=== PATIENT | female | born 1975 | race American Indian/Alaskan Native ===

== ENCOUNTER 2016-07-13 21:27 | Emergency (ER) | payer MEDICAID ==
[2016-07-13 21:27] VITALS: BMI 41.1
[2016-07-13 21:40] VITALS: RESP 18; TEMP 98.7
[2016-07-13] MEDS ORDERED: Vancomycin 1gm in NS 250ml 1 GM/250 ML BAG IVPB STA (22:25)
[2016-07-13 22:44] LABS: ADD MANUAL DIFF? NO
[2016-07-13 22:47] LABS: BASO # 0.04 K/mm3 (0.0-2.0); BASO % 0.5 % (0.0-3.0); EOS # 0.2 (0.0-0.7); EOS % 2.5 % (1.5-5.0); GRAN # 3.55 (1.4-6.5); GRAN % 47.6 % (50.0-68.0); HEMATOCRIT 32.2 % (36.0-48.0); LYMPH # 3.4 (1.2-3.4); LYMPH % 45.4 % (22.0-35.0); MEAN CELL VOLUME 84.5 fL (80.0-105.0); MEAN CORPUSCULAR HEMOGLOBIN 28.1 pg (25.0-35.0); MEAN CORPUSCULAR HGB CONC 33.2 g/dl (31.0-37.0); MEAN PLATELET VOLUME 9.9 fl (7.0-11.0); MONO # 0.3 (0.1-0.6); PLATELET COUNT 349 10^3/uL (120.0-450.0); RED CELL DISTRIBUTION WIDTH 13.1 % (11.5-14.5); WHITE BLOOD COUNT 7.5 10^3/ul (4.5-11.0)
[2016-07-13 22:57] LABS: ALB/GLOB RATIO 1.1 (1.1-1.8); ALKALINE PHOSPHATASE 65 U/L (38-133); ALT/SGPT 29 U/L (7-56); AST/SGOT 16 U/L (15-39); BILIRUBIN,TOTAL 0.4 mg/dL (0.2-1.3); BLOOD UREA NITROGEN 15 mg/dL (7-21); CARBON DIOXIDE 26 mmol/L (21-33); CHLORIDE 106 mmol/L (98-107); GFR AFRICAN-AMERICAN > 60; GLUCOSE,RANDOM 107 mg/dL (70-110); SODIUM 138 mmol/L (132-148); TOTAL PROTEIN 7.4 g/dL (5.8-8.3)
--- NOTE | 2016-07-13 23:57 | ED PDOC ---
Arrival/HPI - General Chief Complaint: Breast Problem Time Seen by Provider: 07/13/16 22:10 Historian: Patient - History of Present Illness Narrative History of Present Illness (Text): 07/12/16 22:25 40 year old female who presents to the Emergency department complaining of an abscess to the left breast for the past few days. Patient reports associated pain to the left breast and states today she noticed yellow discharge coming from the abscess. Patient denies any fever, chills, chest pain, shortness of breath, headache, dizziness, or any other complaints. Time/Duration: Other (few days) Symptom Onset: Gradual Symptom Course: Unchanged Activities at Onset: Rest Context: Home Past Medical History - Provider Review Nursing Documentation Reviewed: Yes - Tetanus Immunization Tetanus Immunization: Unknown - Psychiatric Hx Substance Use: No - Surgical History Hx Section: Yes - Suicidal Assessment Feels Threatened In Home Enviroment: No Family/Social History - Physician Review Nursing Documentation Reviewed: Yes Family/Social History: No Known Family HX Smoking Status: Light Smoker < 10 Cigarettes Daily Hx Alcohol Use: Yes Frequency of alcohol use: Socially Hx Substance Use: No Hx Substance Use Treatment: No Allergies/Home Meds Allergies/Adverse Reactions: Allergies No Known Allergies Allergy (Verified 10/26/13 14:05) Review of Systems - Physician Review All systems were reviewed & negative as marked: Yes - Review of Systems Constitutional: Normal. absent: Fevers Eyes: Normal ENT: Normal Respiratory: Normal. absent: SOB, Cough Cardiovascular: Normal. absent: Chest Pain Gastrointestinal: Normal. absent: Abdominal Pain, Diarrhea, Nausea, Vomiting Genitourinary Female: Normal. absent: Dysuria, Frequency, Hematuria, Urine Output Changes Musculoskeletal: Normal. absent: Back Pain, Neck Pain Skin: Abscess (+left breast abscess). absent: Rash Neurological: Normal. absent: Headache, Dizziness Endocrine: Normal Hemo/Lymphatic: Normal Psychiatric: Normal Physical Exam Vital Signs Reviewed: Yes Vital Signs Temp Pulse Resp BP Pulse Ox 07/14/16 01:07 61 18 139/79 100 07/13/16 21:39 98.7 F 69 18 156/82 H 99 Temperature: Afebrile Blood Pressure: Normal Pulse: Regular Respiratory Rate: Normal Appearance: Positive for: Well-Appearing, Non-Toxic, Comfortable Pain Distress: None Mental Status: Positive for: Alert and Oriented X 3 - Systems Exam Head: Present: Atraumatic, Normocephalic Pupils: Present: PERRL Extroacular Muscles: Present: EOMI Conjunctiva: Present: Normal Mouth: Present: Moist Mucous Membranes Neck: Present: Normal Range of Motion Respiratory/Chest: Present: Clear to Auscultation, Good Air Exchange. No: Respiratory Distress, Accessory Muscle Use Cardiovascular: Present: Regular Rate and Rhythm, Normal S1, S2. No: Murmurs Abdomen: Present: Normal Bowel Sounds. No: Tenderness, Distention, Peritoneal Signs Breast/Axillary: Present: Erythema (3x3cm tender, indurated, non-fluctuant, open draining abscess with surrounding cellulitis proximal to left nipple), Other (FIDELIA Montoya present as supervisor [employer]). No: Fluctuance, Nipple Discharge Back: Present: Normal Inspection Upper Extremity: Present: Normal Inspection. No: Cyanosis, Edema Lower Extremity: Present: Normal Inspection. No: Edema Neurological: Present: GCS=15, CN II-XII Intact, Speech Normal Skin: Present: Warm, Dry, Normal Color. No: Rashes Psychiatric: Present: Alert, Oriented x 3, Normal Insight, Normal Concentration Medical Decision Making ED Course and Treatment: 07/13/16 22:25 Impression: 40 year old female complaining of an abscess to left breast. Differential Diagnosis include but are not limited to: abscess vs. cellulitis Plan: -- Labs, blood culture -- Wound culture -- Reassess and disposition -- Vancomycin IV -- Toradol IV Progress Notes: On reevaluation, patient is resting comfortably in bed with improvement of pain. Lab results discussed with the patient in great detail. WBC is wnl. Patient received a dose of vancomycin IV. Based on history, exam and diagnostic results plan will be for outpatient follow -up with PMD. Prescription provided for Bactrim. Patient states she fully agrees with and understands discharge instructions. States that she agrees with the plan and disposition. Verbalized and repeated discharge instructions and plan. I have given the patient opportunity to ask any additional questions. Follow up with primary care physician in 1-2 days without fail. Advised to take medication as prescribed. Return to the emergency room at any time for any new or worsening symptoms. - Lab Interpretations Lab Results: 07/13/16 22:30 07/13/16 22:30 Lab Results 07/13/16 22:30: Sodium 138, Potassium 4.0, Chloride 106, Carbon Dioxide 26, Anion Gap 10, BUN 15, Creatinine 0.7, Est GFR ( Amer) > 60, Est GFR (Non- Af Amer) > 60, Random Glucose 107, Calcium 9.0, Total Bilirubin 0.4, AST 16, ALT 29, Alkaline Phosphatase 65, Total Protein 7.4, Albumin 3.8, Globulin 3.6, Albumin/Globulin Ratio 1.1 07/13/16 22:30: WBC 7.5, RBC 3.81, Hgb 10.7 L, Hct 32.2 L, MCV 84.5, MCH 28.1, MCHC 33.2, RDW 13.1, Plt Count 349, MPV 9.9, Gran % 47.6 L, Lymph % (Auto) 45.4 H, Kleberg % (Auto) 4.0, Eos % (Auto) 2.5, Baso % (Auto) 0.5, Gran # 3.55, Lymph # 3.4, Kleberg # 0.3, Eos # 0.2, Baso # 0.04 I have reviewed the lab results: Yes - Medication Orders Current Medication Orders: Discontinued Medications Vancomycin HCl (Vancomycin 1gm) 1 gm in 250 mls @ 167 mls/hr IVPB STAT STA PRN Reason: Protocol Stop: 07/13/16 23:54 Last Admin: 07/13/16 23:05 Dose: 167 mls/hr Ketorolac Tromethamine (Toradol) 30 mg IVP STAT STA Stop: 07/13/16 22:26 Last Admin: 07/13/16 23:04 Dose: 30 mg - 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 - Scribe Statement The provider has reviewed the documentation as recorded by the Scribe Jennifer Mcknight All medical record entries made by the Lily were at my direction and personally dictated by me. I have reviewed the chart and agree that the record accurately reflects my personal performance of the history, physical exam, medical decision making, and the department course for this patient. I have also personally directed, reviewed, and agree with the discharge instructions and disposition. Disposition/Present on Arrival - Present on Arrival Any Indicators Present on Arrival: No History of DVT/PE: No History of Uncontrolled Diabetes: No Urinary Catheter: No History of Decub. Ulcer: No History Surgical Site Infection Following: None - Disposition Have Diagnosis and Disposition been Completed?: Yes Diagnosis: Breast abscess Disposition: HOME/ ROUTINE Disposition Time: 00:30 Patient Plan: Discharge Condition: STABLE Discharge Instructions (ExitCare): Abscess (ED) Print Language: QATARI Additional Instructions: Thank you for letting us take care of you today. You were treated for breast abscess. The emergency medical care you received today was directed at your acute symptoms. If you were prescribed any medication, please fill it and take as directed. It may take several days for your symptoms to resolve. Return to the Emergency Department if your symptoms worsen, do not improve, or if you have any other problems. Please contact your doctor in 2 days for re-evaluation and follow up / or call one of the physicians/clinics you have been referred to that are listed on the Patient Visit Information form that is included in your discharge packet. Bring any paperwork you were given at discharge with you along with any medications you are taking to your follow up visit. Our treatment cannot replace ongoing medical care by a primary care provider (PCP) outside of the emergency department. Thank you for allowing the [facility] team to be part of your care today. Prescriptions: Naproxen 500 mg PO BID #30 tab Sulfamethoxazole/Trimethoprim [Bactrim DS 800 mg-160 mg] 2 tab PO BID #28 tab Referrals: Dianna Ling, [Primary Care Provider] - Follow up with primary Forms: WORK NOTE
[2016-07-14 01:07] VITALS: BP 139/79; PULSE 61; O2SAT 100
== END 2016-07-14 01:09 | disposition home or self-care (01) ==
LOC: ED 21:27
DX: N61.1 Abscess of the breast and nipple (principal); F17.210 Nicotine dependence, cigarettes, uncomplicated
CPT/HCPCS: 80053; 85025; 87040; 87070; 96365; 96375; 99284; J1885